=== PATIENT | female | born 2000 | race African-American/Black ===

== ENCOUNTER 2019-06-27 19:32 | Emergency (ER) | payer OTHER ==
[2019-06-27 19:55] VITALS: BP 117/58
[2019-06-27] MEDS ORDERED: KETOROLAC TROMETHAMINE 60 MG/2 ML SDV IM ONE (20:38)
--- NOTE | 2019-06-27 20:41 | ER Document Report ---
ED Medical Screen (RME) - General Chief Complaint: Abdominal Pain Stated Complaint: ABDOMINAL PAIN Time Seen by Provider: 06/27/19 20:33 Mode of Arrival: Wheelchair Information source: Patient Notes: This 19-year-old female presents emergency department with complaints of abdominal pain since April. She has been evaluated by a primary care provider and [facility] today. She received a CT scan today at [facility] and they did not find anything wrong with her per patient.. She was scheduled for an EGD and HIDA scan. Patient reports that she continues to have pain and nobody will help with her pain. She has been prescribed Bentyl and Motrin reports it does not help her pain. Patient reports [facility] told her to come to [facility] because we had GI it professional. Patient seems very frustrated although she is smiling. I offered repeat of labs gallbladder ultrasound and Toradol. Patient is unsure if she will stay. I have greeted and performed a rapid initial assessment of this patient. A comprehensive ED assessment and evaluation of the patient, analysis of test results and completion of the medical decision making process will be conducted by additional ED providers. Dictation of this chart was performed using voice recognition software; therefore, there may be some unintended grammatical errors. TRAVEL OUTSIDE OF THE [place] IN LAST 30 DAYS: No Physical Exam - Vital signs Vitals: Temp Pulse Resp BP Pulse Ox 98.0 F 71 17 117/58 L 100 06/27/19 19:49 06/27/19 19:49 06/27/19 19:49 06/27/19 19:49 06/27/19 19:49 Course - Vital Signs Vital signs: Temp Pulse Resp BP Pulse Ox 98.0 F 71 17 117/58 L 100 06/27/19 19:49 06/27/19 19:49 06/27/19 19:49 06/27/19 19:49 06/27/19 19:49
== END 2019-06-27 20:50 | disposition left against medical advice (07) ==
LOC: ER 19:32
DX: R10.9 Unspecified abdominal pain (principal)